=== PATIENT | male | born 2000 | race Caucasian/White ===

== ENCOUNTER → 2021-04-17 | Outpatient (CLI) | payer OTHER ==
--- NOTE | 2021-04-17 12:04 | REP ---
INDICATION: MASS RT MIDDLE FINGER. COMPARISON: None. TECHNIQUE: Real-time sonographic evaluation of right 3rd digit performed at the site of a palpable lump. FINDINGS: At the site of the palpable lump of the right 3rd digit there is an oval anechoic simple cyst measuring 8 x 5 x 6 mm. IMPRESSION: Simple cyst right 3rd digit. <Electronically signed by Sachin Whitehead > 04/17/21 1200
== END ==
LOC: M RAD 10:38
DX: M85.441 Solitary bone cyst, right hand (principal)